=== PATIENT | male | born 1985 | race Caucasian/White ===

== ENCOUNTER 2017-01-31 14:46 | Outpatient (CLI) | payer MEDICARE, OTHER ==
[2017-01-31 15:13] LABS: BASOPHILS % 0.5 (0.0-1.5); EOSINOPHILS % 6.8 % (0.0-6.8); MEAN CORPUSCULAR VOLUME 81.3 fl (80.0-100.0); MONOCYTES % 3.8 % (0.0-11.0); NEUTROPHILS # 7.9 # k/uL (1.4-7.7)
[2017-01-31 15:22] LABS: APPEARANCE,URINE Clear (CLEAR); COLOR,URINE Yellow (YELLOW); OCCULT BLOOD,URINE Negative (NEGATIVE); PH URINE 7.5 (5.0 - 8.0)
[2017-01-31 15:30] LABS: AMORPHOUS SEDIMENT,UR FEW (NEGATIVE)
[2017-01-31 16:18] LABS: eGFR (African) > 60; eGFR (Non-African) > 60
== END 2017-01-31 14:47 ==
LOC: LAB 14:46
PROVIDERS: ATTEND Family Medicine
DX: E78.00 Pure hypercholesterolemia, unspecified (principal); D63.8 Anemia in other chronic diseases classified elsewhere; N39.0 Urinary tract infection, site not specified; Z51.81 Encounter for therapeutic drug level monitoring
CPT/HCPCS: 36415; 80053; 80061; 81002; 85025; 87086; 87186

== ENCOUNTER 2017-04-07 17:01 | Outpatient (CLI) | payer MEDICARE, OTHER ==
[2017-04-07 17:29] LABS: APPEARANCE,URINE Clear (CLEAR); COLOR,URINE Yellow (YELLOW); OCCULT BLOOD,URINE Negative (NEGATIVE); PH URINE 5.5 (5.0 - 8.0); UROBILINOGEN URINE 0.2 Eu (0.2-1.0)
[2017-04-07 17:38] LABS: AMORPHOUS SEDIMENT,UR FEW (NEGATIVE)
[2017-04-07 17:50] LABS: eGFR (African) > 60; eGFR (Non-African) > 60
== END 2017-04-07 17:02 ==
LOC: LAB 17:01
PROVIDERS: ATTEND Family Medicine
DX: Z51.81 Encounter for therapeutic drug level monitoring (principal); T83.511D Infection and inflammatory reaction due to indwelling urethral catheter, subsequent encounter; X58.XXXA Exposure to other specified factors, initial encounter; Y93.9 Activity, unspecified; Y99.9 Unspecified external cause status
CPT/HCPCS: 36415; 80048; 81002; 87086

== ENCOUNTER 2017-06-22 11:05 | Outpatient (CLI) | payer MEDICARE, OTHER ==
[2017-06-22 11:40] LABS: MEAN CORPUSCULAR HEMOGLOBIN 24.3 pg (28.0-34.0); MEAN CORPUSCULAR VOLUME 77.5 fl (80.0-100.0)
[2017-06-22 12:18] LABS: eGFR (African) > 60; eGFR (Non-African) > 60
[2017-06-22 12:59] LABS: BASOPHILS % 6 % (0-2); EOSINOPHILS % 3 % (0-7); MONOCYTES % 7 % (0-11); SEGMENTED NEUTROPHILS % 43 % (39-79)
[2017-06-22 13:00] LABS: HYPOCHROMASIA 2+ (NEGATIVE)
== END 2017-06-22 11:06 ==
LOC: LAB 11:05
PROVIDERS: ATTEND Family Medicine
DX: Z51.81 Encounter for therapeutic drug level monitoring (principal); L89.153 Pressure ulcer of sacral region, stage 3
CPT/HCPCS: 36415; 80053; 84134; 85025; 85651; 86141

== ENCOUNTER 2017-12-25 18:51 | Outpatient (CLI) | payer MEDICARE, OTHER ==
[2017-12-26 09:32] LABS: APPEARANCE,URINE Cloudy (CLEAR); COLOR,URINE Brown (YELLOW); OCCULT BLOOD,URINE Negative (NEGATIVE); UROBILINOGEN URINE 0.2 Eu (0.2-1.0)
[2017-12-26 09:41] LABS: AMORPHOUS SEDIMENT,UR MODERATE (NEGATIVE)
== END 2017-12-25 18:52 ==
LOC: LAB 18:51
PROVIDERS: ATTEND Emergency Medicine
DX: R30.0 Dysuria (principal)
CPT/HCPCS: 81002; 87086

== ENCOUNTER 2018-10-20 09:04 | Outpatient (CLI) | payer MEDICARE, OTHER ==
[2018-10-20 09:47] LABS: EOSINOPHILS % 7.4 % (0.0-6.8); MONOCYTES % 5.1 % (0.0-11.0); NEUTROPHILS # 3.5 # k/uL (1.4-7.7)
== END 2018-10-20 09:06 ==
LOC: LAB 09:04
PROVIDERS: ATTEND Family Medicine
DX: D64.9 Anemia, unspecified (principal)
CPT/HCPCS: 36415; 85025